=== PATIENT | male | born 1930 | race Caucasian/White ===

== ENCOUNTER 2016-11-02 11:26 | Outpatient (CLI) | payer MEDICARE | END 2016-11-02 11:27 | disposition home or self-care (01) | DX: R00.8 Other abnormalities of heart beat (principal); I10 Essential (primary) hypertension ==

== ENCOUNTER 2017-06-09 10:20 | Outpatient (CLI) | payer MEDICARE ==
--- NOTE | 2017-06-09 12:07 | Ultrasound Report ---
CAROTID DUPLEX: 06/09/2017 CLINICAL INDICATION: Pulsatile tinnitus. TECHNIQUE: Real-time sonographic vascular imaging was performed by the home maker through the carotid arteries utilizing both color-flow and Doppler spectral analysis. Multiple medical claims representative static images were saved for review. Vessel PSV cm/sec 2D Plaque Estimate % ICA/CCA PSV EDV cm/sec % Stenosis RCCA Prox 73 -- RCCA Dist 71 15 RECA 98 -- RT BULB 76 -- 1.0 16 BELA Prox 58 -- 0.81 12 BELA Mid 79 -- 1.0 19 BELA Dist 68 -- 0.95 19 RVA 34 RVA flow direction: Antegrade. Vessel PSV cm/sec 2D Plaque Estimate % ICA/CCA PSV EDV cm/sec % Stenosis LCCA Prox 80 -- LCCA Dist 72 14 LECA 80 -- LFT BULB 58 -- 0.80 16 LICA Prox 60 -- 0.83 14 LICA Mid 69 -- 0.95 23 LICA Dist 72 -- 1.0 23 LVA 43 LVA flow direction: Antegrade. Velocity criteria are extrapolated from diameter data as defined by the Society of Radiologists in Ultrasound Consensus Conference Radiology 2003; 229; 340-346. Degree of Stenosis % ICA PSV cm/sec Plaque Estimate % ICA/CCA RSV Ratio ICA EDV cm/sec Normal < 125 None < 2.0 < 40 <50 < 125 < 50 < 2.0 < 40 50-69 125 - 130 >/= 50 2.0 - 4.0 40 - 100 >/= 70 but less than near occlusion > 230 >/= 50 > 4.0 > 100 Near occlusion High, low, or undetectable Visible lumen Variable Variable Total occlusion Undetectable No detectable lumen Not applicable Not applicable FINDINGS: RIGHT: There is mild plaquing in the right carotid bifurcation, without evidence of a focal hemodynamically significant carotid stenosis. LEFT: There is mild plaquing in the left carotid bifurcation, without evidence of a focal hemodynamically significant carotid stenosis. The vertebral arteries demonstrate antegrade flow bilaterally. IMPRESSION: MILD PLAQUING BILATERALLY, WITHOUT EVIDENCE OF A FOCAL HEMODYNAMICALLY SIGNIFICANT CAROTID STENOSIS. MTDD
== END 2017-06-09 10:21 | disposition home or self-care (01) ==
LOC: DI 10:20
PROVIDERS: ATTEND Registered Nurse
DX: H93.A9 Pulsatile tinnitus, unspecified ear (principal)
CPT/HCPCS: 93880

== ENCOUNTER 2017-07-03 13:33 | Outpatient (CLI) | payer MEDICARE | END 2017-07-03 13:34 | disposition home or self-care (01) | LOC: DI 13:33 | PROVIDERS: ATTEND Registered Nurse | DX: I35.0 Nonrheumatic aortic (valve) stenosis (principal) | CPT/HCPCS: 93306 ==

== ENCOUNTER 2017-12-04 12:45 | Outpatient (CLI) | payer MEDICARE | END 2017-12-04 12:46 | disposition home or self-care (01) | LOC: DI 12:45 | PROVIDERS: ATTEND Internal Medicine Cardiovascular Disease | DX: I06.1 Rheumatic aortic insufficiency (principal) | CPT/HCPCS: 93306 ==

== ENCOUNTER 2018-08-09 12:24 | Emergency (ER) | payer MEDICARE ==
--- NOTE | 2018-08-09 12:52 | ED Physician Documentation ---
History of Present Illness - Stated complaint Stated Complaint: LIGHTHEADED/DIZZY - Chief complaint Chief Complaint: Neuro - History obtained from History obtained from: Patient, Family - History of Present Illness Timing: How many days ago (intermittent for days) Pain level max: 0 Pain level now: 0 Improved by: rest Worsened by: standing - Additonal information Additional information: Patient is an 88-year-old male who presents to the emergency department today with feeling lightheaded and dizzy when standing. Took his pulse rate and it was in the 30s. Came here for evaluation. Is not on any antiarrhythmics, beta- blockers or calcium channel blockers Review of Systems Ten Systems: 10 systems reviewed and negative Constitutional: denies: Fever, Chills Ears: denies: Ear pain Nose: denies: Rhinorrhea / runny nose, Congestion Cardiac: denies: Chest pain / pressure, Palpitations, Calf pain Respiratory: denies: Cough GI: denies: Abdominal Pain, Nausea, Vomiting, Diarrhea Skin: denies: Rash Musculoskeletal: denies: Neck pain, Back pain Neurologic: denies: Headache PD PAST MEDICAL HISTORY - Past Medical History Cardiovascular: Hypertension Respiratory: None Endocrine/Autoimmune: None GI: None : Other HEENT: Other Psych: None, Other Musculoskeletal: Other Derm: None - Past Surgical History Past Surgical History: Yes Ortho: Amputation HEENT: Cataracts - Present Medications Home Medications: Ambulatory Orders Medication Instructions Recorded Confirmed Atorvastatin [Lipitor] 10 mg PO DAILY 05/19/14 05/19/14 Bicalutamide 50 mg PO 08/09/18 Losartan/Hydrochlorothiazide 12.5 each PO 08/09/18 [Losartan-Hctz 100-12.5 mg Tab] Simvastatin 40 mg PO 08/09/18 - Allergies Allergies/Adverse Reactions: Allergies Allergy/AdvReac Type Severity Reaction Status Date / Time No Known Drug Allergies Allergy Verified 08/09/18 12:38 - Social History Does the pt smoke?: No Smoking Status: Never smoker Does the pt drink ETOH?: No Does the pt have substance abuse?: No - Immunizations Immunizations are current?: Yes - POLST Patient has POLST: No PD ED PE NORMAL - Vitals Vital signs reviewed: Yes - General General: Alert and oriented X 3, No acute distress - HEENT HEENT: Moist mucous membranes - Neck Neck: Supple, no meningeal sign - Cardiac Cardiac: Other (bradycardia) - Respiratory Respiratory: No respiratory distress, Clear bilaterally - Abdomen Abdomen: Soft, Non tender, Non distended - Derm Derm: Warm and dry - Neuro Neuro: Alert and oriented X 3 - Psych Psych: Normal mood, Normal affect Results - Vitals Vitals: Vital Signs - 24 hr 08/09/18 08/09/18 08/09/18 12:30 13:35 14:52 Temperature 36 C L Heart Rate 68 60 58 L Respiratory 18 20 17 Rate Blood Pressure 148/62 H 140/66 H 111/67 O2 Saturation 97 94 98 Oxygen O2 Source Room air - EKG (time done) 1240 Rate: Rate (enter#) (73) Rhythm: Other (ventricular bigeminy) [place]: Normal Intervals: Normal [place] QRS: Normal Ischemia: Normal ST segments Other comments: Other comments (ventricular bigeminy) - Labs Labs: Laboratory Tests 08/09/18 08/09/18 08/09/18 13:08 13:08 13:08 WBC 5.3 RBC 4.35 L Hgb 13.3 L Hct 38.2 L MCV 87.8 MCH 30.6 MCHC 34.8 RDW 13.2 Plt Count 175 MPV 7.1 L Neut # (Auto) 2.8 Lymph # (Auto) 1.7 [place] # (Auto) 0.5 Eos # (Auto) 0.3 Baso # (Auto) 0.0 Absolute Nucleated RBC 0.00 Nucleated RBC % 0.0 Sodium 139 Potassium 4.2 Chloride 101 Carbon Dioxide 30 Anion Gap 8.0 BUN 22 H Creatinine 0.8 Estimated GFR (MDRD) 91 Glucose 110 H Calcium 9.2 Total Bilirubin 0.9 AST 27 ALT 22 Alkaline Phosphatase 57 Troponin I < 0.04 Total Protein 6.8 Albumin 4.1 Globulin 2.7 Albumin/Globulin Ratio 1.5 Lipase 48 - Rads (name of study) cxr Radiology: Prelim report reviewed, EMP read contemporaneously, See rad report (normal) PD MEDICAL DECISION MAKING - ED course Complexity details: reviewed results, re-evaluated patient, considered differential, d/w patient, d/w family, d/w as400 consultant ED course: Patient is an 88-year-old male with symptomatic bradycardia and ventricular bigeminy. He is not on any beta-blockers or calcium channel blockers. No rate altering medications. Discussed the case with Dr. Varela, cardiology on-call at [facility] in [place] who graciously accepts in transfer. External pacer pads applied. Case was discussed at 1340. Patient will be transferred to [facility] in [place]. COBRA forms filled out. This document was made in part using voice recognition software. While efforts are made to proofread this document, sound alike and grammatical errors may occur. Departure - Departure Disposition: 02 Transfer Acute Care Hosp Clinical Impression: Ventricular bigeminy, Symptomatic bradycardia Condition: Stable Discharge Date/Time: 08/09/18 14:55
[2018-08-09 13:18] LABS: BASOPHILS % (AUTO) 0.6 %; EOSINOPHILS # (AUTO) 0.3 10^3/uL (0.0-0.7); HGB - HEMOGLOBIN 13.3 g/dL (14.0-18.0); LYMPHOCYTES # (AUTO) 1.7 10^3/uL (1.5-3.5); LYMPHOCYTES % (AUTO) 32.6 %; MEAN CORPUSCULAR HEMOGLOBIN 30.6 pg (27.0-31.0); MEAN CORPUSCULAR HGB CONC 34.8 g/dL (32.0-36.0); MEAN CORPUSCULAR VOLUME 87.8 fL (80.0-94.0); MEAN PLATELET VOLUME 7.1 fL (7.4-11.4); MONOCYTES # (AUTO) 0.5 10^3/uL (0.0-1.0); MONOCYTES % (AUTO) 9.4 %; NEUTROPHILS # (AUTO) 2.8 10^3/uL (1.5-6.6); NEUTROPHILS % (AUTO) 52.4 %; PLT - PLATELET COUNT 175 10^3/uL (130-450); RED BLOOD COUNT 4.35 10^6/uL (4.70-6.10); RED CELL DISTRIBUTION WIDTH 13.2 % (12.0-15.0); WHITE BLOOD COUNT 5.3 x10^3/uL (4.8-10.8)
--- NOTE | 2018-08-09 13:21 | XRAY Report ---
Reason: dizzy, palpitations Procedure Date: 08/09/2018 Accession Number: [id number] / [id number] Procedure: XR - Chest 1 View X-Ray CPT Code: 37326 FULL RESULT: EXAM: CHEST RADIOGRAPHY EXAM DATE: 08/09/2018 01:16 PM. CLINICAL HISTORY: Dizzy, palpitations. COMPARISON: CHEST 2 VIEW PA/LAT 11/02/2016 11:34 AM. TECHNIQUE: 1 view. FINDINGS: Lungs/Pleura: No focal opacities evident. No pleural effusion. No pneumothorax. Mediastinum: Within exam limitations, the cardiomediastinal contour is normal. Other: None. IMPRESSION: Negative portable chest radiograph. RADIA
[2018-08-09 13:34] LABS: ALBUMIN 4.1 g/dL (3.2-5.5); ALBUMIN/GLOBULIN RATIO 1.5 (1.0-2.2); BILIRUBIN,TOTAL 0.9 mg/dL (0.2-1.0); CALCIUM 9.2 mg/dL (8.5-10.3); CREATININE 0.8 mg/dL (0.6-1.2); TOTAL PROTEIN 6.8 g/dL (6.7-8.2)
[2018-08-09 14:53] VITALS: BP 111/67
== END 2018-08-09 14:55 | disposition short-term general hospital (02) ==
LOC: ED 12:24
DX: R00.8 Other abnormalities of heart beat (principal); R00.1 Bradycardia, unspecified; I10 Essential (primary) hypertension
CPT/HCPCS: 36415; 71045; 80053; 83690; 84484; 85025; 92953; 93005; 99284; 99285

== ENCOUNTER 2018-08-09 16:14 | Outpatient (CLI) | payer MEDICARE | END 2018-08-09 16:15 | disposition short-term general hospital (02) | LOC: EMS 16:14 | PROVIDERS: ATTEND Surgery | DX: R00.1 Bradycardia, unspecified (principal) | CPT/HCPCS: A0170; A0425; A0426 ==

== ENCOUNTER 2018-09-21 12:09 | Outpatient (CLI) | payer MEDICARE ==
--- NOTE | 2018-09-21 17:11 | Nuclear Medicine Report ---
Reason: PROSTATE CANCER Procedure Date: 09/21/2018 Accession Number: [id number] / [id number] Procedure: NM - Bone Whole Body CPT Code: FULL RESULT: EXAM: BONE SCAN EXAM DATE: 09/21/2018 03:59 PM. CLINICAL HISTORY: PROSTATE CANCER. COMPARISON: None available. TECHNIQUE: Following the intravenous administration of 32.3 mCi of technetium 99m MDP and an appropriate delay, a whole-body scan was performed in anterior and posterior projections. FINDINGS: Exam Quality: Normal overall osseous radiotracer uptake. Physiological tracer uptake in bilateral collecting systems. Skull: No focal uptake. Thorax: There are foci of intensely increased uptake in bilateral ribs. Pelvis: There is a tiny focus of moderately increased uptake projecting over the left sacroiliac joint. Possible additional tiny focus in a similar location on the right. Spine: Small focus of intensely increased uptake on the right side of T12. Additional intense lesions in the mid thoracic spine approximately T6, T7, and T8. Extremities: Right [id number] amputation. A small focus of uptake at the lateral aspect of the right humeral head could be metastatic or degenerative. 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 RADIA
== END 2018-09-21 12:10 | disposition home or self-care (01) ==
LOC: DI 12:09
PROVIDERS: ATTEND Urology
DX: C61 Malignant neoplasm of prostate (principal)
CPT/HCPCS: 78306

== ENCOUNTER 2018-10-26 14:59 | Outpatient (CLI) | payer MEDICARE ==
--- NOTE | 2018-10-27 17:00 | Ultrasound Report ---
Reason: R NAYAN PAIN Procedure Date: 10/26/2018 Accession Number: [id number] / [id number] Procedure: US - Pelvic Limited or F/U CPT Code: FULL RESULT: EXAM: INGUINAL ULTRASOUND EXAM DATE: 10/26/2018 05:04 PM. CLINICAL HISTORY: R NAYAN PAIN. COMPARISON: None. TECHNIQUE: Real-time sonographic imaging of the inguinal canals and vascular structures, including color-flow, was performed by the microfilm processor. Multiple automobile rental representative static images were saved for review. FINDINGS: Hernia: None identified with or without Valsalva. Soft Tissues: Normal. No fluid collections or adenopathy. Other: None. IMPRESSION: Normal. No inguinal hernia evident. RADIA
== END 2018-10-26 15:00 | disposition home or self-care (01) ==
LOC: DI 14:59
PROVIDERS: ATTEND Emergency Medicine
DX: R10.31 Right lower quadrant pain (principal)
CPT/HCPCS: 76857

== ENCOUNTER 2018-12-05 09:51 | Outpatient (CLI) | payer MEDICARE ==
[2018-12-05 18:26] LABS: TESTOSTERONE, TOTAL < 10 ng/dL (350-720)
== END 2018-12-05 09:52 | disposition home or self-care (01) ==
LOC: LAB.F 09:51
PROVIDERS: ATTEND Urology
DX: C61 Malignant neoplasm of prostate (principal); R97.21 Rising PSA following treatment for malignant neoplasm of prostate
CPT/HCPCS: 36415; 84153; 84403

== ENCOUNTER 2019-01-21 09:31 | Outpatient (CLI) | payer MEDICARE ==
[2019-01-21 18:26] LABS: ALBUMIN 3.9 g/dL (3.2-5.5); ALBUMIN/GLOBULIN RATIO 1.2 (1.0-2.2); CALCIUM 9.7 mg/dL (8.5-10.3); CREATININE 0.7 mg/dL (0.6-1.2); TOTAL PROTEIN 7.1 g/dL (6.7-8.2)
[2019-01-21 19:21] LABS: BASOPHILS % (AUTO) 0.5 %; EOSINOPHILS # (AUTO) 0.4 10^3/uL (0.0-0.7); EOSINOPHILS % (AUTO) 7.9 %; HGB - HEMOGLOBIN 14.4 g/dL (14.0-18.0); MEAN CORPUSCULAR HEMOGLOBIN 29.2 pg (27.0-31.0); MEAN CORPUSCULAR HGB CONC 33.2 g/dL (32.0-36.0); MEAN CORPUSCULAR VOLUME 87.9 fL (80.0-94.0); MEAN PLATELET VOLUME 7.3 fL (7.4-11.4); MONOCYTES # (AUTO) 0.4 10^3/uL (0.0-1.0); MONOCYTES % (AUTO) 7.3 %; NEUTROPHILS # (AUTO) 2.4 10^3/uL (1.5-6.6); NEUTROPHILS % (AUTO) 46.3 %; PLT - PLATELET COUNT 229 10^3/uL (130-450); RED BLOOD COUNT 4.94 10^6/uL (4.70-6.10); RED CELL DISTRIBUTION WIDTH 13.9 % (12.0-15.0); WHITE BLOOD COUNT 5.2 x10^3/uL (4.8-10.8)
== END 2019-01-21 09:32 | disposition home or self-care (01) ==
LOC: LAB.F 09:31
PROVIDERS: ATTEND Internal Medicine
DX: C61 Malignant neoplasm of prostate (principal)
CPT/HCPCS: 36415; 80053; 85025

== ENCOUNTER 2019-01-31 09:38 | Outpatient (CLI) | payer MEDICARE ==
[2019-01-31 17:44] LABS: BASOPHILS % (AUTO) 0.4 %; EOSINOPHILS # (AUTO) 0.4 10^3/uL (0.0-0.7); LYMPHOCYTES # (AUTO) 2.2 10^3/uL (1.5-3.5); LYMPHOCYTES % (AUTO) 42.2 %; MEAN CORPUSCULAR HGB CONC 32.9 g/dL (32.0-36.0); MEAN PLATELET VOLUME 7.4 fL (7.4-11.4); MONOCYTES # (AUTO) 0.4 10^3/uL (0.0-1.0); MONOCYTES % (AUTO) 8.3 %; NEUTROPHILS # (AUTO) 2.2 10^3/uL (1.5-6.6); NEUTROPHILS % (AUTO) 41.1 %; PLT - PLATELET COUNT 226 10^3/uL (130-450); RED BLOOD COUNT 4.84 10^6/uL (4.70-6.10); RED CELL DISTRIBUTION WIDTH 13.8 % (12.0-15.0); WHITE BLOOD COUNT 5.3 x10^3/uL (4.8-10.8)
[2019-01-31 18:01] LABS: ALBUMIN 3.9 g/dL (3.2-5.5); ALBUMIN/GLOBULIN RATIO 1.3 (1.0-2.2); BILIRUBIN,TOTAL 0.8 mg/dL (0.2-1.0); CALCIUM 9.3 mg/dL (8.5-10.3); CREATININE 0.9 mg/dL (0.6-1.2); TOTAL PROTEIN 6.9 g/dL (6.7-8.2)
== END 2019-01-31 09:39 | disposition home or self-care (01) ==
LOC: LAB.F 09:38
PROVIDERS: ATTEND Nurse Practitioner
DX: C61 Malignant neoplasm of prostate (principal)
CPT/HCPCS: 36415; 80053; 85025

== ENCOUNTER 2019-06-03 11:43 | Outpatient (CLI) | payer MEDICARE ==
[2019-06-03] MEDS ORDERED: IOVERSOL 320 50 ML VIAL ONE (12:10)
[2019-06-03] MEDS ORDERED: IOVERSOL 320 100 ML VIAL IVP ONE ×2 (12:10→14:08)
--- NOTE | 2019-06-04 11:44 | CT Report ---
Reason: INGUINAL/PELVIC PAIN, NEW RIGHT STUMP PAIN CONCERN FOR BONY MET Procedure Date: 06/03/2019 Accession Number: [id number] / [id number] Procedure: CT - LOWER EXTREMITY W - RT CPT Code: FULL RESULT: EXAM: RIGHT FEMUR/THIGH CT WITH CONTRAST EXAM DATE: 06/03/2019 01:25 PM. CLINICAL HISTORY: Inguinal/pelvic pain, new right stump pain, concern for bony met. COMPARISON: BONE SCAN 09/21/2018 3:25 PM. TECHNIQUE: Thin-section axial images were acquired of the femur(s) after administration of intravenous contrast. IV contrast: OPTI 320 100 mL. Post-processing: Coronal and sagittal reformats. Other: None. In accordance with CT protocol optimization, one or more of the following dose reduction techniques were utilized for this exam: automated exposure control, adjustment of mA and/or KV based on patient size, or use of iterative reconstructive technique. FINDINGS: Bones: No lytic or sclerotic lesions. No focal bony lysis to suggest osteomyelitis. Joints: Moderate bilateral hip osteoarthritis worse on the right. Musculature: Atrophy of the right gluteal and thigh musculature consistent with the amputation. Other: No abscess or cellulitis in the visualized portions of the thigh(s). Colonic diverticulosis is noted. Coarse vascular calcification. IMPRESSION: 1. No bony metastases identified. 2. No focal bony lysis to suggest osteomyelitis. 3. Moderate bilateral hip osteoarthritis. RADIA
--- NOTE | 2019-06-05 10:50 | CT Report ---
Reason: INGUINAL PAIN Procedure Date: 06/03/2019 Accession Number: [id number] / [id number] Procedure: CT - Abdomen/Pelvis W CPT Code: FULL RESULT: EXAM: CT ABDOMEN AND PELVIS EXAM DATE: 06/03/2019 01:25 PM. CLINICAL HISTORY: INGUINAL PAIN. COMPARISONS: BONE SCAN 09/21/2018 3:25 PM. TECHNIQUE: Routine helical CT imaging was performed through the abdomen and pelvis. IV contrast: OPTI 320 100ML. Enteric contrast: No. Reconstructions: Coronal and sagittal. In accordance with CT protocol optimization, one or more of the following dose reduction techniques were utilized for this exam: automated exposure control, adjustment of mA and/or KV based on patient size, or use of iterative reconstructive technique. FINDINGS: Lung Bases: Linear changes are noted in the lung bases that most likely represent atelectasis or scarring. There is incomplete visualization of a lesion in the left lower lobe of the lung measuring 10 x 7 mm. (Image 1 of series 2). Solid organs: The liver is without evidence of an enhancing mass in the gallstones are seen within the gallbladder. There is no intrahepatic biliary duct dilatation. The spleen, pancreas, and adrenal glands are normal in appearance. Kidneys are without evidence of a mass or hydronephrosis. Peritoneal Cavity/Bowel: There is no CT evidence of acute appendicitis. Diverticulosis of the descending and sigmoid colon is noted. There is no evidence of diverticulitis. Pelvic Organs: There is a small fat-containing left inguinal hernia. No mass or cyst is seen within the pelvis there is no periaortic or pelvic lymphadenopathy. There is a fat-containing lesion in the right gluteus musculature measuring 4.1 x 3.1 cm. Vasculature: There is atherosclerosis of the aorta and its branches, including the coronary arteries. Bones: There are degenerative changes of the thoracic and lumbar spine. Focal areas of sclerosis are noted within both iliac bones. The lesion within the right iliac bone measures 13 mm (image 70 of series 2). The lesion within the left iliac bone measures approximately 15 mm (image 68 of series 2). IMPRESSION: Incomplete visualization of the lesion in the left lobe of the lung measuring 10 x [address] of the chest if further characterization is needed. Small fat-containing left inguinal hernia. Diverticulosis of the descending and sigmoid colon without evidence of diverticulitis. Sclerotic lesions in both iliac bones. These are consistent with the previously demonstrated bone metastasis. Incomplete visualization of a probable lipoma in the right gluteus musculature. Atherosclerosis of the aorta and its branches, including the coronary arteries. RADIA
== END 2019-06-03 11:44 | disposition home or self-care (01) ==
LOC: DI 11:43
PROVIDERS: ATTEND Registered Nurse
DX: M16.0 Bilateral primary osteoarthritis of hip (principal); R91.8 Other nonspecific abnormal finding of lung field; K40.90 Unilateral inguinal hernia, without obstruction or gangrene, not specified as recurrent; K57.30 Diverticulosis of large intestine without perforation or abscess without bleeding; M89.9 Disorder of bone, unspecified; I25.10 Atherosclerotic heart disease of native coronary artery without angina pectoris; I70.0 Atherosclerosis of aorta
CPT/HCPCS: 73701; 74177; Q9967

== ENCOUNTER 2019-09-07 20:45 | Outpatient (CLI) | payer MEDICARE | END 2019-09-07 20:46 | disposition critical access hospital (66) | LOC: EMS 20:45 | PROVIDERS: ATTEND Surgery | DX: R53.1 Weakness (principal); R06.02 Shortness of breath | CPT/HCPCS: A0425; A0427 ==

== ENCOUNTER 2019-09-07 21:10 | Emergency (ER) | payer MEDICARE ==
--- NOTE | 2019-09-07 21:33 | ED Physician Documentation ---
PD HPI DYSPNEA - Stated complaint Stated Complaint: WEAKNESS, SOA - Chief complaint Chief Complaint: Resp - History obtained from History obtained from: Patient - History of Present Illness Timing - onset: How many days ago (3) Timing - onset during: Other (He was seen 4 days ago with an incarcerated hernia that was reduced and recurred again several hours later after being discharged. It was reduced again and he stated in the ER overnight for surgical repair of his hernia the following day. He was not having any troubles breathing during that time. Postoperatively he was having considerable trouble breathing and was diagnosed with pneumonia by CT scan that showed no blood clots. He also had an echocardiogram that showed a good ejection fraction and wall motion. He was treated for pneumonia with antibiotics and discharged on oral antibiotics and incentive spirometry. He states he was having general malaise and weakness at the time of discharge but feeling well enough to go home and was not feeling short of breath. At home today after discharge she was feeling a little bit anxious and states he got up to go to the bathroom using a new walker rather than crutches and got significantly dyspneic and called EMS. EMS found the patient to be having trouble breathing with low oxygen level at 89 to 90% and wheezing. Neb treatment was given on route with improvement.) Timing - duration: Days Timing - details: Gradual onset, Waxing and waning Inciting event(s): Other (Dx with pneumonia 3 days ago, and was post op hernia repair.). No: Out of meds Improved by: O2, Inhaler/neb (enroute by EMS, does not have inhaler at home.) Associated symptoms: Cough, Wheezing. 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 denies: Nausea, Vomiting, Diarrhea Musculoskeletal: denies: Neck pain, Back pain PD PAST MEDICAL HISTORY - Past Medical History Cardiovascular: Hypertension Respiratory: None Neuro: None Endocrine/Autoimmune: None GI: None : Other (Prostate cancer with metastasis to the bone.) HEENT: Other Psych: None, Other Musculoskeletal: Other Derm: None - Past Surgical History Past Surgical History: Yes General: Hiatal hernia repair Ortho: Amputation HEENT: Cataracts Derm: Skin cancer surgery - Present Medications Home Medications: Ambulatory Orders Medication Instructions Recorded Confirmed Simvastatin 40 mg PO QPM 08/09/18 09/04/19 Abiraterone Acetate [Zytiga] 1,000 mg PO DAILY 02/27/19 09/04/19 Glucosamine HCl 2 tab PO DAILY 02/27/19 08/27/19 Magnesium Oxide [Magnesium] 1 tab PO DAILY 02/27/19 08/27/19 Ondansetron HCl [Zofran] 8 tab PO Q8HR PRN 02/27/19 09/04/19 Zolpidem Tartrate [Ambien] 10 mg PO QPM PRN 02/27/19 09/04/19 Hydrochlorothiazide 12.5 mg PO DAILY 09/04/19 09/04/19 Leuprolide [Lupron] 22.5 mg IM .3MONTHS 09/04/19 09/04/19 Losartan Potassium 50 mg PO DAILY 09/04/19 09/04/19 Prednisone 5 tab PO BIDWM 09/04/19 09/04/19 Albuterol Sulf [Ventolin Hfa 1 - 2 puffs INH Q4HR PRN #1 inhaler 09/07/19 Inhaler] Azithromycin [Zithromax] 250 mg PO DAILY #2 tablet 09/07/19 cefUROXime axetil [Ceftin] 500 mg PO Q12H 2 Days #8 tablet 09/07/19 dexAMETHasone [Decadron] 4 mg PO DAILY #5 tablet 09/07/19 hydroCHLOROthiazide [Hydrodiuril] 12.5 mg PO DAILY #5 capsule 09/07/19 - Allergies Allergies/Adverse Reactions: Allergies Allergy/AdvReac Type Severity Reaction Status Date / Time No Known Drug Allergies Allergy Verified 09/03/19 23:29 - Social History Does the pt smoke?: No Smoking Status: Never smoker Does the pt drink ETOH?: No Does the pt have substance abuse?: No - Immunizations Immunizations are current?: Yes - POLST Patient has POLST: No PD ED PE NORMAL - Vitals Vital signs reviewed: Yes - General General: Alert and oriented X 3, Well developed/nourished - HEENT HEENT: Ears normal, Pharynx benign - Neck Neck: Supple, no meningeal sign, No adenopathy - Cardiac Cardiac: RRR, No murmur - Respiratory Respiratory: No respiratory distress. No: Clear bilaterally (some exp wheezes diffuse, mild. faint fine crackles at bases. ) - Abdomen Abdomen: Normal bowel sounds, Soft, Non distended, No organomegaly - Male Male : Deferred - Rectal Rectal: Deferred - Back Back: No CVA TTP - Derm Derm: Normal color - Extremities Extremities: No edema, No calf tenderness / cord - Neuro Neuro: Alert and oriented X 3, No motor deficit, Normal speech Results - Vitals Vitals: Vital Signs - 24 hr 09/07/19 09/07/19 09/07/19 21:12 21:35 22:26 Temperature 36.7 C Heart Rate 75 65 Respiratory 23 14 Rate Blood Pressure 176/91 H 129/77 O2 Saturation 92 94 09/07/19 23:16 Temperature Heart Rate 65 Respiratory 18 Rate Blood Pressure 117/78 O2 Saturation 92 Oxygen O2 Source Room air - Labs Labs: Laboratory Tests 09/07/19 09/07/19 09/07/19 21:30 21:30 21:30 WBC 8.0 RBC 3.86 L Hgb 11.4 L Hct 35.0 L MCV 90.7 MCH 29.5 MCHC 32.6 RDW 13.3 Plt Count 153 MPV 9.9 Neut # (Auto) 6.0 Lymph # (Auto) 1.3 L [place] # (Auto) 0.6 Eos # (Auto) 0.1 Baso # (Auto) 0.0 Absolute Nucleated RBC 0.00 Nucleated RBC % 0.0 Sodium Potassium Chloride Carbon Dioxide Anion Gap BUN Creatinine Estimated GFR (MDRD) Glucose Lactic Acid Calcium Total Bilirubin AST ALT Alkaline Phosphatase Troponin I High Sens 60.1 H* B-Natriuretic Peptide 716 H Total Protein Albumin Globulin Albumin/Globulin Ratio Lipase Blood Type Antibody Screen 09/07/19 09/07/19 09/07/19 22:05 22:05 22:05 WBC RBC Hgb Hct MCV MCH MCHC RDW Plt Count MPV Neut # (Auto) Lymph # (Auto) [place] # (Auto) Eos # (Auto) Baso # (Auto) Absolute Nucleated RBC Nucleated RBC % Sodium 140 Potassium 3.2 L Chloride 100 L Carbon Dioxide 31 Anion Gap 9.0 BUN 13 Creatinine 0.7 Estimated GFR (MDRD) 106 Glucose 122 H Lactic Acid 1.3 Calcium 7.9 L Total Bilirubin 0.8 AST 30 ALT 21 Alkaline Phosphatase 40 L Troponin I High Sens B-Natriuretic Peptide Total Protein 5.9 L Albumin 3.0 L Globulin 2.9 Albumin/Globulin Ratio 1.0 Lipase 18 L Blood Type Cancelled Antibody Screen Cancelled - Rads (name of study) chest xray Radiology: Prelim report reviewed (right lower infiltrate.), See rad report PD MEDICAL DECISION MAKING - ED course Complexity details: reviewed results, re-evaluated patient (He is feeling better here and is more relaxed and having unlabored breathing. His saturations are 95% on room air. I think he may have had a bronchospastic episode. However he does have some elevation of the BNP. His troponin is somewhat elevated but has been that way on sequential blood tests over the last 3 days. It did not show a significant rise. His pneumonia symptoms could potentially relate to aspiration as he did have some vomiting with the incarcerated hernia. Less likely would be intraoperative aspiration. Coincidental community acquired pneumonia at this time of his hernia process and repair can be a possibility 2. His hemoglobin was significantly down from 15-10 from pre-to postop and is up to 11.5 now. He would not likely have had that much blood loss during the surgery so presume some delusional effect. I would consider that he has some fluid overload component to the current symptoms.), considered differential (he was feeling improved breathing enroute with EMS neb and oxygen and just relaxing. More improved with neb again here. I think he was having some bronchospasm and mucous plugging perhaps from current pneumonia. Could be some element of fluid overload at surgery. He had ECHO post op with EF 60-65% and good wall movement. However, does have some elvated BNP and lowered Hgb, suggesting fluid overload. Can give mild diuretic for few days and would expect operative fluid load so can benefit for him. The pneumonia is looking improved some on Xray. ), d/w patient Departure - Departure Disposition: 01 Home, Self Care Clinical Impression: Elevated troponin, Post-operative state, Dyspnea Pneumonia Qualifiers: Pneumonia type: due to unspecified organism Laterality: right Lung location: lower lobe of lung Qualified Code(s): J18.9 - Pneumonia, unspecified organism Anemia Qualifiers: Anemia type: unspecified type Qualified Code(s): D64.9 - Anemia, unspecified Condition: Stable Record reviewed to determine appropriate education?: Yes Instructions: ED Dyspnea Shortness of Breath, ED Pneumonia Adult Follow-Up: Paula Zambrano ARNP [Primary Care Provider] - Prescriptions: Albuterol Sulf [Ventolin Hfa Inhaler] 1 - 2 puffs INH Q4HR PRN #1 inhaler PRN Reason: Shortness Of Air/Wheezing dexAMETHasone [Decadron] 4 mg PO DAILY #5 tablet hydroCHLOROthiazide [Hydrodiuril] 12.5 mg PO DAILY #5 capsule Comments: Continue with your current antibiotics and also the incentive spirometer as had previously been prescribed. To that I would add an albuterol inhaler 2 puffs 4 times a day and extra times if needed for shortness of breath. The pneumonia and bronc bronchial irritation with it can cause tightness of the airways and the inhaler can help open that up. I would also add Decadron steroid anti-inflammatory to help with inflammation of the airways as well. I think there is an element of some fluid overload which is common during surgery and I would also had a very mild diuretic/water pill daily for just the next 4 to 5 days. Avoid overly strenuous activity. You certainly have been through bit with the surgery and pneumonia and will have easy fatigue. Your blood count is a little bit low due to the surgery and fluids in the hospital. This will improve over the next couple of weeks as well. Recheck if not improving well over the next few days. Discharge Date/Time: 09/07/19 23:54
[2019-09-07] MEDS ORDERED: DEXAMETHASONE 10 MG/ML VIAL IVP STA (21:40)
[2019-09-07] MEDS ORDERED: ALBUTEROL NEB 2.5 MG/3 ML INH STA (21:40)
[2019-09-07 21:52] LABS: BASOPHILS % (AUTO) 0.1 %; EOSINOPHILS # (AUTO) 0.1 10^3/uL (0.0-0.7); EOSINOPHILS % (AUTO) 1.4 %; HGB - HEMOGLOBIN 11.4 g/dL (14.0-18.0); LYMPHOCYTES # (AUTO) 1.3 10^3/uL (1.5-3.5); LYMPHOCYTES % (AUTO) 15.9 %; MEAN CORPUSCULAR HEMOGLOBIN 29.5 pg (27.0-31.0); MEAN CORPUSCULAR HGB CONC 32.6 g/dL (32.0-36.0); MEAN CORPUSCULAR VOLUME 90.7 fL (80.0-94.0); MEAN PLATELET VOLUME 9.9 fL (7.4-11.4); MONOCYTES # (AUTO) 0.6 10^3/uL (0.0-1.0); MONOCYTES % (AUTO) 7.5 %; NEUTROPHILS % (AUTO) 74.5 %; PLT - PLATELET COUNT 153 10^3/uL (130-450); RED BLOOD COUNT 3.86 10^6/uL (4.70-6.10); RED CELL DISTRIBUTION WIDTH 13.3 % (12.0-15.0)
[2019-09-07 22:23] LABS: BILIRUBIN,TOTAL 0.8 mg/dL (0.2-1.0); CALCIUM 7.9 mg/dL (8.5-10.3); CREATININE 0.7 mg/dL (0.6-1.2)
[2019-09-07 22:24] LABS: TOTAL PROTEIN 5.9 g/dL (6.7-8.2)
[2019-09-07] MEDS ORDERED: POTASSIUM CHLOR 10 MEQ/100 ML 10 MEQ/100 ML BAG IV ONE (22:29)
[2019-09-07] MEDS ORDERED: FUROSEMIDE 20 MG/2 ML VIAL IVP STA (22:53)
--- NOTE | 2019-09-07 22:57 | XRAY Report ---
Reason: dyspnea/ cough Procedure Date: 09/07/2019 Accession Number: [id number] / [id number] Procedure: XR - Chest 2 View X-Ray CPT Code: 30812 Final Report FULL RESULT: EXAM: CHEST RADIOGRAPHY EXAM DATE: 09/07/2019 10:22 PM. CLINICAL HISTORY: Dyspnea. Cough. COMPARISON: CHEST FOR LINE PLACEMENT 09/05/2019 11:23 AM. TECHNIQUE: 2 views. FINDINGS: Lungs/Pleura: Hypoinflated lungs. Lateral film shows posterior basilar infiltrate, likely right side. Mediastinum: Heart and mediastinal contours are unremarkable. Other: No compression fractures. IMPRESSION: Posterior right lower lobe infiltrate. RADIA
[2019-09-07 23:17] VITALS: BP 117/78
[2019-09-07] MEDS ORDERED: POTASSIUM CHLORIDE 10 MEQ CAPSULE PO STA (23:22)
== END 2019-09-07 23:54 | disposition home or self-care (01) ==
LOC: EDUNIT# → ED 21:10
DX: J18.9 Pneumonia, unspecified organism (principal); Z98.890 Other specified postprocedural states; R74.8 Abnormal levels of other serum enzymes; D64.9 Anemia, unspecified; I10 Essential (primary) hypertension; C61 Malignant neoplasm of prostate; C79.51 Secondary malignant neoplasm of bone
CPT/HCPCS: 71046; 80053; 83605; 83690; 83880; 84484; 85025; 93005; 94640; 99283; 99284; A9270; 83735; 86850; 86900; 86901

== ENCOUNTER 2019-09-27 09:28 | Outpatient (CLI) | payer MEDICARE ==
[2019-09-27 17:25] LABS: BASOPHILS # (AUTO) 0.1 10^3/uL (0.0-0.1); BASOPHILS % (AUTO) 0.6 %; EOSINOPHILS # (AUTO) 0.2 10^3/uL (0.0-0.7); LYMPHOCYTES # (AUTO) 2.8 10^3/uL (1.5-3.5); LYMPHOCYTES % (AUTO) 34.7 %; MEAN CORPUSCULAR HEMOGLOBIN 29.9 pg (27.0-31.0); MEAN CORPUSCULAR HGB CONC 32.2 g/dL (32.0-36.0); MEAN PLATELET VOLUME 8.4 fL (7.4-11.4); MONOCYTES # (AUTO) 0.4 10^3/uL (0.0-1.0); MONOCYTES % (AUTO) 5.5 %; NEUTROPHILS # (AUTO) 4.6 10^3/uL (1.5-6.6); NEUTROPHILS % (AUTO) 56.6 %; PLT - PLATELET COUNT 345 10^3/uL (130-450); RED BLOOD COUNT 5.01 10^6/uL (4.70-6.10); RED CELL DISTRIBUTION WIDTH 13.5 % (12.0-15.0); WHITE BLOOD COUNT 8.1 x10^3/uL (4.8-10.8)
[2019-09-27 17:46] LABS: ALBUMIN 3.7 g/dL (3.2-5.5); ALBUMIN/GLOBULIN RATIO 1.1 (1.0-2.2); ALKALINE PHOSPHATASE 53 IU/L (42-121); ALT ALANINE AMINOTRANSFERASE 41 IU/L (10-60); AST ASPARTATE AMINOTRANSFERASE 30 IU/L (10-42); BUN - BLOOD UREA NITROGEN 26 mg/dL (6-20); CALCIUM 9.3 mg/dL (8.5-10.3); CARBON DIOXIDE - CO2 30 mmol/L (21-32); CHLORIDE 94 mmol/L (101-111); CHOL/HDL RATIO 2.5 (<5.0); CHOLESTEROL 160 mg/dL; GFR - MDRD 70 (>89); GLUCOSE 121 mg/dL (70-100); HDL CHOLESTEROL 64 mg/dL; LDL CHOLESTEROL,CALCULATED 61 mg/dL; SODIUM 134 mmol/L (135-145); TOTAL PROTEIN 7.1 g/dL (6.7-8.2); VLDL CHOLESTEROL 35 mg/dL
[2019-09-27 19:30] LABS: FREE T4 (FREE THYROXINE) 1.2 ng/dL (0.58-1.64)
== END 2019-09-27 09:29 | disposition home or self-care (01) ==
LOC: LAB.S 09:28
PROVIDERS: ATTEND Internal Medicine
DX: E78.5 Hyperlipidemia, unspecified (principal); R53.83 Other fatigue
CPT/HCPCS: 36415; 80053; 80061; 83721; 84439; 84443; 85025

== ENCOUNTER 2019-10-28 09:50 | Outpatient (CLI) | payer MEDICARE ==
--- NOTE | 2019-10-28 15:54 | Nuclear Medicine Report ---
Reason: PROSTATE CA Procedure Date: 10/28/2019 Accession Number: [id number] / [id number] Procedure: NM - Bone Whole Body CPT Code: Final Report FULL RESULT: EXAM: BONE SCAN EXAM DATE: 10/28/2019 02:46 PM. CLINICAL HISTORY: PROSTATE CA. COMPARISON: BONE SCAN 09/21/2018 3:25 PM CHEST ANGIO 09/05/2019 1:07 AM ABDOMEN/PELVIS W/ 09/04/2019 1:44 AM. TECHNIQUE: Following the intravenous administration of 29.7 mCi of technetium 99m MDP and an appropriate delay, a whole-body scan was performed in anterior and posterior projections. Site-specific spot views of the region of interest were obtained in various projections. FINDINGS: Normal renal radiotracer uptake and bladder activity. Normal soft tissue activity. Overall normal osseous uptake. Multiple abnormal foci of radiotracer uptake in the axial and proximal appendicular skeleton consistent with metastatic disease, as before. Most of these correspond to sclerotic bone lesions by prior CT examination. Overall decreased uptake associated with bilateral rib lesions. No new rib lesions. Similar moderate focal sternal body uptake. Overall decreased uptake associated with multilevel spinal lesions most conspicuous at T7. No new spinal lesions. Similar moderate focal uptake left posterior ilium, mild focal uptake left lumbosacral junction region. Decreased mild focal uptake right posterior ilium. IMPRESSION: 1. Multifocal osseous metastatic disease with evidence of overall partial interval response to therapy. No convincing new bone lesions. RADIA
== END 2019-10-28 09:51 | disposition home or self-care (01) ==
LOC: DI 09:50
PROVIDERS: ATTEND Internal Medicine Hematology & Oncology
DX: C61 Malignant neoplasm of prostate (principal); C79.51 Secondary malignant neoplasm of bone
CPT/HCPCS: 78306

== ENCOUNTER 2019-12-09 14:04 | Outpatient (CLI) | payer MEDICARE | END 2019-12-09 14:05 | disposition home or self-care (01) | LOC: LAB.S 14:04 | PROVIDERS: ATTEND Internal Medicine | DX: E03.9 Hypothyroidism, unspecified (principal) | CPT/HCPCS: 36415; 84443 ==

== ENCOUNTER 2019-12-17 01:50 | Emergency (ER) | payer MEDICARE ==
[2019-12-17] MEDS ORDERED: GABAPENTIN 100 MG CAPSULE PO STA (03:47)
[2019-12-17 04:05] LABS: BASOPHILS % (AUTO) 0.4 %; EOSINOPHILS # (AUTO) 0.1 10^3/uL (0.0-0.7); EOSINOPHILS % (AUTO) 1.7 %; HGB - HEMOGLOBIN 13.4 g/dL (14.0-18.0); LYMPHOCYTES # (AUTO) 1.1 10^3/uL (1.5-3.5); MEAN CORPUSCULAR HEMOGLOBIN 28.8 pg (27.0-31.0); MEAN CORPUSCULAR VOLUME 89.9 fL (80.0-94.0); MEAN PLATELET VOLUME 8.2 fL (7.4-11.4); MONOCYTES # (AUTO) 0.6 10^3/uL (0.0-1.0); MONOCYTES % (AUTO) 8.2 %; NEUTROPHILS # (AUTO) 5.1 10^3/uL (1.5-6.6); NEUTROPHILS % (AUTO) 73.4 %; PLT - PLATELET COUNT 227 10^3/uL (130-450); RED BLOOD COUNT 4.66 10^6/uL (4.70-6.10); WHITE BLOOD COUNT 6.9 x10^3/uL (4.8-10.8)
[2019-12-17 04:16] LABS: ALBUMIN 3.7 g/dL (3.2-5.5); ALBUMIN/GLOBULIN RATIO 1.3 (1.0-2.2); BILIRUBIN,TOTAL 0.8 mg/dL (0.2-1.0); CALCIUM 9.1 mg/dL (8.5-10.3); CREATININE 0.8 mg/dL (0.6-1.2); TOTAL PROTEIN 6.6 g/dL (6.7-8.2)
--- NOTE | 2019-12-17 04:33 | XRAY Report ---
Reason: LEG PAIN Procedure Date: 12/17/2019 Accession Number: [id number] / [id number] Procedure: XR - Femur 2V RT CPT Code: Final Report FULL RESULT: EXAM: RIGHT FEMUR RADIOGRAPHY EXAM DATE: 12/17/2019 04:23 AM. CLINICAL HISTORY: LEG PAIN. COMPARISON: None. TECHNIQUE: 2 views. FINDINGS: Bones: Osteopenia. Status post [id number] amputation. No acute fracture seen. No focal area of bone destruction. Joints: No dislocation seen. Mild to moderate degenerative joint disease. Soft Tissues: Grossly unremarkable. IMPRESSION: 1. Afqpm-dhi-bloc amputation. No acute fracture or dislocation seen. 2. 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 RADIA
[2019-12-17] MEDS ORDERED: MORPHINE 2 MG/ML CARPUJECT IM STA (04:45)
[2019-12-17 05:28] VITALS: BP 143/71
[2019-12-17] MEDS ORDERED: oxyCODONE/ACET 5/325 Prepack 4 PO STA (05:37)
--- NOTE | 2019-12-17 05:38 | ED Physician Documentation ---
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 PATIENT REPORTED THAT HE WAS EXERCISING EARLIER TODAY AND THOUGHT THAT HIS STUMP WAS RUBBING AGAINST THE PROSTHETIC AND HE HAS BEEN EXPERIENCING INTERMITTENT SHARP PAIN TO HIS RIGHT AKA STUMP. NOTHING MAKES IT BETTER OR WORSE AND THE PAIN WOULD COME ON INTENSIVELY FOR SECONDS AND IT DOES AWAY QUICKLY. PATIENT DENIES FEVER, CHILLS OR TRAUMA AND HE REPORTED THAT HE FELT PHATOM PAIN TO HIS RIGHT LOWER LEG WHICH HAD BEEN AMPUTATED. Review of Systems Constitutional: denies: Fever, Chills Ears: denies: Ear pain Nose: denies: Rhinorrhea / runny nose Cardiac: denies: Chest pain / pressure, Palpitations Respiratory: denies: Dyspnea, Cough GI: denies: Abdominal Pain, Nausea, Vomiting Skin: denies: Rash Musculoskeletal: reports: Extremity pain. 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; Insomnia - Past Surgical History Past Surgical History: Yes General: Hiatal hernia repair Ortho: Amputation HEENT: Cataracts Derm: Skin cancer surgery - Present Medications Home Medications: Ambulatory Orders Medication Instructions Recorded Confirmed Simvastatin 40 mg PO QPM 08/09/18 10/01/19 Abiraterone Acetate [Zytiga] 1,000 mg PO DAILY 02/27/19 10/01/19 Glucosamine HCl 2 tab PO DAILY 02/27/19 10/01/19 Magnesium Oxide [Magnesium] 1 tab PO DAILY 02/27/19 10/01/19 Ondansetron HCl [Zofran] 8 tab PO Q8HR PRN 02/27/19 10/01/19 Zolpidem Tartrate [Ambien] 10 mg PO QPM PRN 02/27/19 10/01/19 Hydrochlorothiazide 12.5 mg PO DAILY 09/04/19 10/01/19 Leuprolide [Lupron] 22.5 mg IM .3MONTHS 09/04/19 10/01/19 Losartan Potassium 50 mg PO DAILY 09/04/19 10/01/19 Prednisone 5 tab PO BIDWM 09/04/19 10/01/19 Albuterol Sulf [Ventolin Hfa 1 - 2 puffs INH Q4HR PRN #1 inhaler 09/07/19 10/01/19 Inhaler] Azithromycin [Zithromax] 250 mg PO DAILY #2 tablet 09/07/19 10/01/19 cefUROXime axetiL [Ceftin] 500 mg PO Q12H 2 Days #8 tablet 09/07/19 10/01/19 dexAMETHasone [Decadron] 4 mg PO DAILY #5 tablet 09/07/19 10/01/19 hydroCHLOROthiazide [Hydrodiuril] 12.5 mg PO DAILY #5 capsule 09/07/19 10/01/19 Oxycodone HCl/Acetaminophen 1 - 2 each PO Q6H PRN #14 tablet 12/17/19 [Percocet 5-325 mg Tablet] - Allergies Allergies/Adverse Reactions: Allergies Allergy/AdvReac Type Severity Reaction Status Date / Time No Known Drug Allergies Allergy Verified 09/03/19 23:29 - Social History Does the pt smoke?: No Smoking Status: Never smoker Does the pt drink ETOH?: No Does the pt have substance abuse?: No - Immunizations Immunizations are current?: Yes - POLST Patient has POLST: No PD ED PE NORMAL - General General: Alert and oriented X 3, Other - HEENT HEENT: Atraumatic, EOMI - Neck Neck: Supple, no meningeal sign - Cardiac Cardiac: RRR - Respiratory Respiratory: No respiratory distress, Clear bilaterally - Abdomen Abdomen: Normal bowel sounds - Derm Derm: Normal color, Warm and dry, No rash - Extremities Extremities: Other (RIGHT ABOVE KNEE AMPUTATION. STUMP WAS CLEAN, DRY AND INTACT. NOT TENDER TO PALPATION. NO CREPITUS. NO SWELLING. THERE WAS AN PATCHY AREA OF RAISED ERYTHEMATOUS THICKENED SKIN AT THE STUMP (CHRONIC AND UNCHANGED FOR PATIENT.). NO TENDER. ) Results - Vitals Vitals: Vital Signs - 24 hr 12/17/19 12/17/19 12/17/19 02:05 03:40 04:25 Temperature 36.3 C L Heart Rate 83 68 64 Respiratory 18 18 18 Rate Blood Pressure 136/93 H 153/92 H 140/87 H O2 Saturation 96 95 97 12/17/19 05:27 Temperature Heart Rate 65 Respiratory 16 Rate Blood Pressure 143/71 H O2 Saturation 97 Oxygen O2 Source Room air - Labs Labs: Laboratory Tests 12/17/19 12/17/19 12/17/19 04:00 04:00 04:00 WBC 6.9 RBC 4.66 L Hgb 13.4 L Hct 41.9 L MCV 89.9 MCH 28.8 MCHC 32.0 RDW 14.0 Plt Count 227 MPV 8.2 Neut # (Auto) 5.1 Lymph # (Auto) 1.1 L [place] # (Auto) 0.6 Eos # (Auto) 0.1 Baso # (Auto) 0.0 Absolute Nucleated RBC 0.00 Nucleated RBC % 0.0 ESR 19 Sodium 138 Potassium 3.9 Chloride 101 Carbon Dioxide 28 Anion Gap 9.0 BUN 27 H Creatinine 0.8 Estimated GFR (MDRD) 91 Glucose 139 H Calcium 9.1 Total Bilirubin 0.8 AST 27 ALT 33 Alkaline Phosphatase 46 Total Protein 6.6 L Albumin 3.7 Globulin 2.9 Albumin/Globulin Ratio 1.3 PD MEDICAL DECISION MAKING - ED course Complexity details: re-evaluated patient, d/w patient, d/w family ED course: 89 YEAR OLD MALE HX OF PROSTATE CANCER WITH PREVIOUS RIGHT ABOVE KNEE AMPUTATION PRESENTED WITH PAIN TO THE STUMP AND BELOW THE STUMP (PHATOM PAIN) FOR 1 DAY. PAIN WOULD COME ON INTENSIVELY FOR SECONDS WHILE PATIENT WAS SITTING OR LAYING DOWN AND IT WOULD GO AWAY. HE HAS CHRONIC BACK PAIN BUT THERE WAS NO RAIDICULAR COMPONENT. PATIENT REMAINED HEMODYNAMICALLY STABLE. XRAY OF THE RIGHT FEMUR SHOWED NO OSTEOLYTIC CHANGES OR FRACTURE. WBC, ESR WERE NORMAL. I DO NOT SUSPECT CELLULITIS, NECROTICIZING FASCITIS. THIS IS MOST CONSISTENT WITH NEUROPATHIC PAIN. PATIENT WAS GIVEN NEURONTIN 300 MG WITHOUT SIGNIFICANT IMPROVEMENT OF PAIN. HE WAS GIVEN IM MORPHINE DECREASE EPISODES OF THESE PAIN. HE HAD NO URINARY OR FECAL INCONTINENCE. HE HAS REMAINED. I RECOMMENDED THE PATIENT TO FOLLOW UP WITH HIS PCP IN 3 DAYS. HE WAS PRESCRIBED ANALGESIC MEDICATION FOR PAIN CONTROL (PERCOCET). STRICT RETURN INSTRUCTIONS WERE GIVEN. PATIENT AND EXPRESSED VERBAL UNDERSTANDING. PATIENT WAS DISCHARGED IN STABLE AND IMPROVED CONDITION. Departure - Departure Disposition: 01 Home, Self Care Clinical Impression: Pain in extremity Condition: Good Instructions: Amputation Phantom Sensation Pain Follow-Up: Lukas Murillo MD [Primary Care Provider] - Within 3 Days Prescriptions: Oxycodone HCl/Acetaminophen [Percocet 5-325 mg Tablet] 1 - 2 each PO Q6H PRN #14 tablet PRN Reason: pain Discharge Date/Time: 12/17/19 05:55
== END 2019-12-17 05:55 | disposition home or self-care (01) ==
LOC: ED 01:50
DX: M79.604 Pain in right leg (principal); I10 Essential (primary) hypertension
CPT/HCPCS: 36415; 73552; 80053; 85025; 85651; 96372; 99284; A9270